=== PATIENT | female | born 1955 | race Caucasian/White ===

== ENCOUNTER 2017-07-21 00:36 | Emergency (ER) | payer SELFPAY ==
[~2017-07-21] VITALS: Ht 152.4 cm; Wt 65.0 kg
[~2017-07-21 00:36] MED LIST: CYAN1000P IM
[2017-07-21 00:39] VITALS: BP 157/92; PULSE 70; RESP 18; TEMP 97.9; O2SAT 99
[2017-07-21] MEDS ORDERED: ZANT150T2 PO (00:46)
[2017-07-21] MEDS ORDERED: HYDR12.57 PO (00:46)
--- NOTE | 2017-07-21 01:56 | PD ---
HPI Chief Complaint: Anxiety Time Seen by Provider: 01:04 Travel History International Travel<30 days: No Contact w/Intl Traveler<30days: No Traveled to known affect area: No History of Present Illness HPI The patient was seen and examined in the presence of the nurse. This patient complains of some head pressure and ringing in her ears. This is a chronic problem she has frequently but it made her anxious tonight and she called the ambulance that brought her in. She doesn't have headache or head injury or fever. No thunderclap onset. Symptoms severity is mild. PFSH Past Medical History Anemia: Yes (PERNICIOUS ANEMIA) Anxiety: Yes Heart Rhythm Problems: Yes (MITRAL VALVE PROLAPSE) Cardiac Catheterization: No Cardiovascular Problems: Yes (htn) High Cholesterol: No Congestive Heart Failure: No Diabetes: No Diminished Hearing: No Gastrointestinal Disorders: Yes (CHRONIC ABDOMINAL PAIN) GERD: Yes Headaches: Yes Hypertension: Yes Immunizations Current: No Migraines: Yes Ulcer: Yes Tetanus Vaccination: > 5 Years Influenza Vaccination: No Menopausal: Yes : 4 Para: 2 Miscarriage: 1 : 1 Ovarian Cysts: Yes Past Surgical History Abdominal Surgery: Yes (hemorrhoidectomy) Section: Yes (X 1) Coronary Artery Bypass Graft: No Gynecologic Surgery: Yes (csection) Other Surgery: Yes (PYNOIDal cyst; GI POLYPS REMOVED) Social History Alcohol Use: Yes (WINE OCASSIONALLY) Tobacco Use: No (QUIT AT AGE 25-smoked cigs) Substance Use: No Allergies-Medications (Allergen,Severity, Reaction): Coded Allergies: alprazolam (Unverified Allergy, Severe, UNKNOWN, 07/21/17) bupivacaine (Unverified Allergy, Severe, UNKNOWN, 07/21/17) cefaclor (Unverified Allergy, Severe, UNKNOWN, 07/21/17) ciprofloxacin (Unverified Allergy, Severe, Anaphylaxis, 07/21/17) citalopram (Unverified Allergy, Severe, Vertigo, 07/21/17) diatrizoate meglumine (Unverified Allergy, Severe, Anaphylaxis, 07/21/17) FEVER BLISTERS ON FACE diazepam (Unverified Allergy, Severe, Anaphylaxis, 07/21/17) gadobenic acid (Unverified Allergy, Severe, Anaphylaxis, 07/21/17) FEVER BLISTERS ON FACE gadodiamide (Unverified Allergy, Severe, Anaphylaxis, 07/21/17) FEVER BLISTERS ON FACE gadoteridol (Unverified Allergy, Severe, Anaphylaxis, 07/21/17) FEVER BLISTERS ON FACE imipramine (Unverified Allergy, Severe, UNKNOWN, 07/21/17) iodine (Unverified Allergy, Severe, Anaphylaxis, 07/21/17) iodixanol (Unverified Allergy, Severe, Anaphylaxis, 07/21/17) FEVER BLISTERS ON FACE iohexol (Unverified Allergy, Severe, Anaphylaxis, 07/21/17) FEVER BLISTERS ON FACE lansoprazole (Unverified Allergy, Severe, PROTON PUMP INHIBITORS, 07/21/17) lidocaine (Unverified Allergy, Severe, UNKNOWN, 07/21/17) morphine (Unverified Allergy, Severe, hypersensitivity, 07/21/17) nitroglycerin (Unverified Allergy, Severe, 07/21/17) UNRESPONSIVENESS penicillin G (Unverified Allergy, Severe, Anaphylaxis, 07/21/17) potassium iodide (Unverified Allergy, Severe, Anaphylaxis, 07/21/17) povidone-iodine (Unverified Allergy, Severe, Anaphylaxis, 07/21/17) prednisone (Unverified Allergy, Severe, THROAT SWELLING, PALPITATIONS, ) sodium iodide (Unverified Allergy, Severe, Anaphylaxis, 07/21/17) sodium iodide (Unverified Allergy, Severe, Anaphylaxis, 07/21/17) transparent dressing (Unverified Allergy, Severe, UNKNOWN, 07/21/17) Uncoded Allergies: ALL "ABDIAS" (Allergy, Severe, CARDIAC ARREST, 02/17/10) ALL "CILLINS" (Allergy, Severe, Anaphylaxis, 02/17/10) Reported Meds & Prescriptions Reported Meds & Active Scripts Active Reported Hydrochlorothiazide 12.5 Mg Cap 12.5 Mg PO DIRECTED Zantac (Ranitidine HCl) 150 Mg Tab 150 Mg PO DAILY Review of Systems General / Constitutional: No: Fever Cardiovascular: No: Chest Pain or Discomfort Respiratory: No: Cough Physical Exam Narrative GENERAL: Well-nourished, well-developed patient in no apparent distress. SKIN: Focused skin assessment reveals no rash and nodules. Skin is Warm and dry. HEAD: Atraumatic. Normocephalic. EYES: Pupils equal and round. No scleral icterus. No injection or drainage. ENT: No nasal bleeding or discharge. Mucous membranes pink and moist. TMs normal NECK: Trachea midline. No JVD. No meningeal signs CARDIOVASCULAR: Regular rate and rhythm. No murmur appreciated. RESPIRATORY: No accessory muscle use. Clear to auscultation. Breath sounds equal bilaterally. GASTROINTESTINAL: Abdomen soft, non-tender, nondistended. Hepatic and splenic margins not palpable. MUSCULOSKELETAL: No obvious deformities. No clubbing. No cyanosis. No edema. NEUROLOGICAL: Awake and alert. No obvious cranial nerve deficits. Motor grossly within normal limits. Normal speech. PSYCHIATRIC: Appropriate mood and affect; insight and judgment normal. Data Data Last Documented VS Vital Signs Date Time Temp Pulse Resp B/P (MAP) Pulse Ox O2 Delivery O2 Flow Rate FiO2 07/21/17 00:39 97.9 70 18 157/92 (113) 99 MDM Medical Decision Making Medical Screen Exam Complete: Yes Emergency Medical Condition: Yes Medical Record Reviewed: Yes Differential Diagnosis Tinnitus, labyrinthitis, migraine, URI Narrative Course I have reviewed the patient's electronic medical record. Patient is no objective neurologic deficit. Seems to be chronic problems. She has poor hearing for years. Recommend ENT and primary care follow-up I offered her some medication but she declines stating she is allergic to everything Diagnosis Primary Impression: Tinnitus Qualified Codes: H93.13 - Tinnitus, bilateral Additional Instructions: The patient was advised to follow up with their physician and return if they worsen. Med/Other Pt SpecificInfo: Other Disposition: DISCHARGE HOME Condition: Stable Obed Campos MD Jul 21, 2017 01:56
== END 2017-07-21 02:16 | disposition home or self-care (01) ==
LOC: NEPC 00:36
DX: H93.13 Tinnitus, bilateral (principal); I10 Essential (primary) hypertension; F41.9 Anxiety disorder, unspecified; I34.1 Nonrheumatic mitral (valve) prolapse; D51.0 Vitamin B12 deficiency anemia due to intrinsic factor deficiency; K21.9 Gastro-esophageal reflux disease without esophagitis
CPT/HCPCS: 99281

== ENCOUNTER 2018-03-04 23:22 | Emergency (ER) | payer SELFPAY ==
[~2018-03-04 23:22] MED LIST changes: -CYAN1000P IM; +HYDR12.57 PO; +ZANT150T2 PO
[2018-03-04 23:41] VITALS: BP 195/103; PULSE 89; RESP 20; TEMP 98; O2SAT 100
[2018-03-04] MEDS ORDERED: SODIUM CHLORIDE 0.9% FLUSH 10 ML FLUSH IV FLUSH PRN (23:45)
[2018-03-04] MEDS ORDERED: ACETAMINOPHEN 500 MG CPLT PO ONE (23:45)
[2018-03-04 23:54] VITALS: RESP 20
[2018-03-05 00:15] LABS: AUTOMATED NEUTROPHIL # 5.6 TH/MM3 (1.8-7.7); BASOPHIL # 0.1 TH/MM3 (0-0.2); BASOPHIL % 0.8 % (0.0-2.0); EOSINOPHIL # 0.1 TH/MM3 (0-0.4); EOSINOPHIL % 0.9 % (0.0-4.0); HEMATOCRIT 38.8 % (35.0-46.0); HEMOGLOBIN 13.1 GM/DL (11.6-15.3); LYMPH % 32.1 % (9.0-44.0); MEAN CELL VOLUME 80.7 FL (80.0-100.0); MEAN CORPUSCULAR HEMOGLOBIN 27.3 PG (27.0-34.0); MEAN CORPUSCULAR HGB CONC 33.8 % (32.0-36.0); MONO % 7.3 % (0.0-8.0); MONOCYTE # 0.7 TH/MM3 (0-0.9); NEUT % 58.9 % (16.0-70.0); PLATELET COUNT 347 TH/MM3 (150-450); RED BLOOD COUNT 4.81 MIL/MM3 (4.00-5.30); RED CELL DISTRIBUTION WIDTH 15.4 % (11.6-17.2); WHITE BLOOD COUNT 9.4 TH/MM3 (4.0-11.0)
[2018-03-05 00:32] LABS: ALT (GPT) 29 U/L (10-53)
[2018-03-05 00:33] LABS: ALKALINE PHOSPHATASE 158 U/L (45-117); TOTAL BILIRUBIN ADULT 0.4 MG/DL (0.2-1.0)
--- NOTE | 2018-03-05 00:36 | RADRPT ---
EXAM DATE/TIME: 03/05/2018 00:17 [facility] COMPARISON: CT BRAIN W/O CONTRAST, May 20, 2016, 13:53. INDICATIONS : Trauma; patient fell from a ladder. RADIATION DOSE: 35.52 CTDIvol (mGy) MEDICAL HISTORY : Hypertension. Cardiovascular disease SURGICAL HISTORY : section. ENCOUNTER: Initial ACUITY: 1 day PAIN SCALE: 7/10 LOCATION: cranial TECHNIQUE: Multiple contiguous axial images were obtained of the head. Using automated exposure control and adj ustment of the mA and/or kV according to patient size, radiation dose was kept as low as reasonably a chievable to obtain optimal diagnostic quality images. DICOM format image data is available electro nically for review and comparison. FINDINGS: CEREBRUM: The ventricles are normal for age. No evidence of midline shift, mass lesion, hemorrhage or acute in farction. No extra-axial fluid collections are seen. POSTERIOR FOSSA: The cerebellum and brainstem are intact. The 4th ventricle is midline. The cerebellopontine angle i s unremarkable. EXTRACRANIAL: The visualized portion of the orbits is intact. SKULL: The calvaria is intact. No evidence of skull fracture. CONCLUSION: 1. No evidence of acute intracranial pathology. No masses are identified. Victor M Tomlinson MD on March 05, 2018 at 0:34 Board Certified Radiologist. This report was verified electronically.
--- NOTE | 2018-03-05 00:47 | PD ---
HPI Chief Complaint: Fall Time Seen by Provider: 23:33 Travel History International Travel<30 days: No Contact w/Intl Traveler<30days: No Traveled to known affect area: No History of Present Illness HPI The patient is 62 years old. Tonight she was painting the ceiling in her house while standing on a ladder evidently 6 feet above the ground when she fell onto her left side causing sudden onset pain in the left wrist left shoulder left chest and left gluteus distribution. Patient reports the pain is severe. She reports head trauma and loss of consciousness. Palpation range of motion of left side worsens pain. Injury occurred about an hour prior. PFSH Past Medical History Anemia: Yes (PERNICIOUS ANEMIA) Anxiety: Yes Heart Rhythm Problems: Yes (MITRAL VALVE PROLAPSE) Cardiac Catheterization: No Cardiovascular Problems: Yes (htn) High Cholesterol: No Congestive Heart Failure: No Diabetes: No Diminished Hearing: No Gastrointestinal Disorders: Yes (CHRONIC ABDOMINAL PAIN) GERD: Yes Headaches: Yes Hypertension: Yes Immunizations Current: No Migraines: Yes Ulcer: Yes Tetanus Vaccination: > 5 Years Influenza Vaccination: No ?: Not Menopausal: Yes : 4 Para: 2 Miscarriage: 1 : 1 Ovarian Cysts: Yes Past Surgical History Abdominal Surgery: Yes (hemorrhoidectomy) Section: Yes (X 1) Coronary Artery Bypass Graft: No Gynecologic Surgery: Yes (csection) Other Surgery: Yes (PYNOIDal cyst; GI POLYPS REMOVED) Social History Alcohol Use: Yes (WINE OCASSIONALLY) Tobacco Use: No (QUIT AT AGE 25-smoked cigs) Substance Use: No Allergies-Medications (Allergen,Severity, Reaction): Coded Allergies: alprazolam (Unverified Allergy, Severe, UNKNOWN, 03/04/18) bupivacaine (Unverified Allergy, Severe, UNKNOWN, 03/04/18) cefaclor (Unverified Allergy, Severe, UNKNOWN, 03/04/18) ciprofloxacin (Unverified Allergy, Severe, Anaphylaxis, 03/04/18) citalopram (Unverified Allergy, Severe, Vertigo, 03/04/18) diatrizoate meglumine (Unverified Allergy, Severe, Anaphylaxis, 03/04/18) FEVER BLISTERS ON FACE diazepam (Unverified Allergy, Severe, Anaphylaxis, 03/04/18) gadobenic acid (Unverified Allergy, Severe, Anaphylaxis, 03/04/18) FEVER BLISTERS ON FACE gadodiamide (Unverified Allergy, Severe, Anaphylaxis, 03/04/18) FEVER BLISTERS ON FACE gadoteridol (Unverified Allergy, Severe, Anaphylaxis, 03/04/18) FEVER BLISTERS ON FACE imipramine (Unverified Allergy, Severe, UNKNOWN, 03/04/18) iodine (Unverified Allergy, Severe, Anaphylaxis, 03/04/18) iodixanol (Unverified Allergy, Severe, Anaphylaxis, 03/04/18) FEVER BLISTERS ON FACE iohexol (Unverified Allergy, Severe, Anaphylaxis, 03/04/18) FEVER BLISTERS ON FACE lansoprazole (Unverified Allergy, Severe, PROTON PUMP INHIBITORS, 03/04/18) lidocaine (Unverified Allergy, Severe, UNKNOWN, 03/04/18) morphine (Unverified Allergy, Severe, hypersensitivity, 03/04/18) nitroglycerin (Unverified Allergy, Severe, 03/04/18) UNRESPONSIVENESS penicillin G (Unverified Allergy, Severe, Anaphylaxis, 03/04/18) potassium iodide (Unverified Allergy, Severe, Anaphylaxis, 03/04/18) povidone-iodine (Unverified Allergy, Severe, Anaphylaxis, 03/04/18) prednisone (Unverified Allergy, Severe, THROAT SWELLING, PALPITATIONS, ) sodium iodide (Unverified Allergy, Severe, Anaphylaxis, 03/04/18) sodium iodide (Unverified Allergy, Severe, Anaphylaxis, 03/04/18) transparent dressing (Unverified Allergy, Severe, UNKNOWN, 03/04/18) Uncoded Allergies: ALL "ABDIAS" (Allergy, Severe, CARDIAC ARREST, 02/17/10) ALL "CILLINS" (Allergy, Severe, Anaphylaxis, 02/17/10) Reported Meds & Prescriptions Reported Meds & Active Scripts Active Reported Hydrochlorothiazide 12.5 Mg Cap 12.5 Mg PO DIRECTED Zantac (Ranitidine HCl) 150 Mg Tab 150 Mg PO DAILY Review of Systems Except as stated in HPI: all other systems reviewed are Neg General / Constitutional: No: Fever Physical Exam Narrative GENERAL: 62-year-old female pleasant well-nourished well-developed mild to moderate distress secondary to pain and/or anxiety Vital Signs Date Time Temp Pulse Resp B/P (MAP) Pulse Ox O2 Delivery O2 Flow Rate FiO2 03/04/18 23:54 20 03/04/18 23:41 98.0 89 20 195/103 (133) 100 Room Air SKIN: Warm and dry. HEAD: Atraumatic. Normocephalic. EYES: Pupils equal and round. No scleral icterus. No injection or drainage. ENT: No nasal bleeding or discharge. Mucous membranes pink and moist. NECK: Trachea midline. No JVD. CARDIOVASCULAR: Regular rate and rhythm. RESPIRATORY: No accessory muscle use. Clear to auscultation. Breath sounds equal bilaterally. GASTROINTESTINAL: Abdomen soft, non-tender, nondistended. Hepatic and splenic margins not palpable. MUSCULOSKELETAL: Tenderness palpation overlying the left gluteus distribution left wrist and left shoulder. No gross deformity. No overlying contusion deformity bruise abrasion laceration. NEUROLOGICAL: Awake and alert. No obvious cranial nerve deficits. Motor grossly within normal limits. Five out of 5 muscle strength in the arms and legs. Normal speech. PSYCHIATRIC: Appropriate mood and affect; insight and judgment normal. Data Data Last Documented VS Vital Signs Date Time Temp Pulse Resp B/P (MAP) Pulse Ox O2 Delivery O2 Flow Rate FiO2 03/04/18 23:54 20 03/04/18 23:41 98.0 89 100 Room Air Orders Orders Acetaminophen (Tylenol) (03/04/18 23:45) Ct Brain W/O Iv Contrast(Rout) (03/04/18 23:45) Ct Cerv Spine W/O Contrast (03/04/18 23:45) Chest, Single Ap (03/04/18 23:45) Pelvis, Ap Only (Routine) (03/04/18 23:45) Ice/Cold Pack (03/04/18 23:45) Femur (Ap & Lat/2vws) (03/04/18 ) Humerus (Min 2vws) (03/04/18 ) Complete Blood Count With Diff (03/04/18 23:45) Comprehensive Metabolic Panel (03/04/18 23:45) Iv Access Insert/Monitor (03/04/18 23:45) Ecg Monitoring (03/04/18 23:45) Oximetry (03/04/18 23:45) Sodium Chloride 0.9% Flush (Ns Flush) (03/04/18 23:45) Wrist, Complete ([id number]) (03/05/18 ) Ed Discharge Order (03/05/18 01:17) Labs Laboratory Tests Test 03/04/18 23:50 White Blood Count 9.4 TH/MM3 Red Blood Count 4.81 MIL/MM3 Hemoglobin 13.1 GM/DL Hematocrit 38.8 % Mean Corpuscular Volume 80.7 FL Mean Corpuscular Hemoglobin 27.3 PG Mean Corpuscular Hemoglobin Concent 33.8 % Red Cell Distribution Width 15.4 % Platelet Count 347 TH/MM3 Mean Platelet Volume 8.0 FL Neutrophils (%) (Auto) 58.9 % Lymphocytes (%) (Auto) 32.1 % Monocytes (%) (Auto) 7.3 % Eosinophils (%) (Auto) 0.9 % Basophils (%) (Auto) 0.8 % Neutrophils # (Auto) 5.6 TH/MM3 Lymphocytes # (Auto) 3.0 TH/MM3 Monocytes # (Auto) 0.7 TH/MM3 Eosinophils # (Auto) 0.1 TH/MM3 Basophils # (Auto) 0.1 TH/MM3 CBC Comment DIFF FINAL Differential Comment Blood Urea Nitrogen 10 MG/DL Creatinine 1.04 MG/DL Random Glucose 98 MG/DL Total Protein 8.0 GM/DL Albumin 4.1 GM/DL Calcium Level 9.7 MG/DL Alkaline Phosphatase 158 U/L Aspartate Amino Transf (AST/SGOT) 40 U/L Alanine Aminotransferase (ALT/SGPT) 29 U/L Total Bilirubin 0.4 MG/DL Sodium Level 138 MEQ/L Potassium Level 3.3 MEQ/L Chloride Level 107 MEQ/L Carbon Dioxide Level 21.9 MEQ/L Anion Gap 9 MEQ/L Estimat Glomerular Filtration Rate 54 ML/MIN [facility] Medical Decision Making Medical Screen Exam Complete: Yes Emergency Medical Condition: Yes Medical Record Reviewed: Yes Differential Diagnosis Pneumothorax, rib contusion, wrist sprain, hematoma Narrative Course Left wrist x-ray shows no fracture CT of the cervical spine reveals a central protrusion at C2-3 without stenosis Chest x-ray shows no acute cardiopulmonary disease or acute traumatic injury Head CT shows no acute intracranial pathology Pelvis x-ray shows no evidence of fracture Left humerus x-ray reveals no evidence of fracture CBC & BMP Diagram 03/04/18 23:50 Total Protein 8.0, Albumin 4.1, Calcium Level 9.7, Alkaline Phosphatase 158 H, Aspartate Amino Transf (AST/SGOT) 40 H, Alanine Aminotransferase (ALT/SGPT) 29, Total Bilirubin 0.4 Pain controlled Pt ready for discharge home Diagnosis Primary Impression: Fall from ladder Qualified Codes: W11.XXXA - Fall on and from ladder, initial encounter Additional Impressions: Left wrist sprain Qualified Codes: S63.502A - Unspecified sprain of left wrist, initial encounter Gluteal pain Loss of consciousness Contusion of left shoulder, initial encounter Hypokalemia Referrals: Primary Care Physician 2 days Med/Other Pt SpecificInfo: No Change to Meds Disposition: 01 DISCHARGE HOME Condition: Stable Irineo Collins MD Mar 05, 2018 00:47
[2018-03-05 00:52] LABS: ALBUMIN 4.1 GM/DL (3.4-5.0); AST (GOT) 40 U/L (15-37); BICARBONATE 21.9 MEQ/L (21.0-32.0); BLOOD UREA NITROGEN 10 MG/DL (7-18); CALCIUM 9.7 MG/DL (8.5-10.1); CHLORIDE 107 MEQ/L (98-107); CREATININE 1.04 MG/DL (0.50-1.00); GLOMERULAR FILTRATION RATE 54 ML/MIN (>89); GLUCOSE,RANDOM 98 MG/DL (74-106); SODIUM (NA) 138 MEQ/L (136-145)
--- NOTE | 2018-03-05 00:53 | RADRPT ---
EXAM DATE/TIME: 03/05/2018 00:02 [facility] COMPARISON: No previous studies available for comparison. INDICATIONS : Chest pain post fall from ladder. MEDICAL HISTORY : Hypertension. Pernicious anemia. Migraines SURGICAL HISTORY : None. ENCOUNTER: Initial ACUITY: 1 day PAIN SCORE: 9/10 LOCATION: Bilateral chest FINDINGS: A single view of the chest demonstrates the lungs to be symmetrically aerated without evidence of mas s, infiltrate or effusion. The cardiomediastinal contours are unremarkable. Osseous structures are intact. CONCLUSION: 1. No acute cardiopulmonary disease. Victor M Tomlinson MD on March 05, 2018 at 0:35 Board Certified Radiologist. This report was verified electronically.
--- NOTE | 2018-03-05 00:54 | RADRPT ---
EXAM DATE/TIME: 03/04/2018 23:58 [facility] COMPARISON: No previous studies available for comparison. INDICATIONS : Left hip pain post fall from ladder. MEDICAL HISTORY : Hypertension. Pernicious anemia. Migraines SURGICAL HISTORY : None. ENCOUNTER: Initial ACUITY: 1 day PAIN SCORE: 9/10 LOCATION: Bilateral pelvis FINDINGS: A single frontal view of the pelvis demonstrates no evidence of fracture. The bony pelvic ring is in tact. Bony mineralization is normal. The soft tissues are intact. CONCLUSION: 1. There is no evidence of acute fracture. Victor M Tomlinson MD on March 05, 2018 at 0:52 Board Certified Radiologist. This report was verified electronically.
--- NOTE | 2018-03-05 00:55 | RADRPT ---
EXAM DATE/TIME: 03/05/2018 00:03 [facility] COMPARISON: No previous studies available for comparison. INDICATIONS : Left proximal humerus pain post fall from ladder. MEDICAL HISTORY : Hypertension. Pernicious anemia. Migraines SURGICAL HISTORY : None. ENCOUNTER: Initial ACUITY: 1 day PAIN SCORE: 9/10 LOCATION: Left upper extremity FINDINGS: Two view examination of the left humerus demonstrates no evidence of fracture or dislocation. Bony m ineralization is normal. The soft tissue structures are intact. CONCLUSION: 1. There is no evidence of acute fracture. Victor M Tomlinson MD on March 05, 2018 at 0:53 Board Certified Radiologist. This report was verified electronically.
--- NOTE | 2018-03-05 01:03 | RADRPT ---
EXAM DATE/TIME: 03/05/2018 00:10 [facility] COMPARISON: No previous studies available for comparison. INDICATIONS : Left wrist pain post fall from ladder. MEDICAL HISTORY : Hypertension. Pernicious anemia. Migraines SURGICAL HISTORY : None. ENCOUNTER: Initial ACUITY: 1 day PAIN SCORE: 8/10 LOCATION: Left upper extremity FINDINGS: Three view examination of the left wrist demonstrates no soft tissue swelling, dislocation, or fractu re. The carpal bones are in normal alignment. The joint spaces are maintained. Bony mineralization is normal. CONCLUSION: 1. Negative examination of the wrist. Victor M Tomlinson MD on March 05, 2018 at 1:02 Board Certified Radiologist. This report was verified electronically.
--- NOTE | 2018-03-05 01:08 | RADRPT ---
EXAM DATE/TIME: 03/05/2018 00:17 [facility] COMPARISON: No previous studies available for comparison. INDICATIONS : Trauma; patient fell from a ladder. RADIATION DOSE: 21.11 CTDIvol (mGy) MEDICAL HISTORY : Hypertension. Cardiovascular disease SURGICAL HISTORY : Carpal tunnel syndrome. ENCOUNTER: Initial ACUITY: 1 day PAIN SCALE: 7/10 LOCATION: neck TECHNIQUE: Volumetric scanning of the cervical spine was performed. Multiplanar reconstructions in the sagittal, coronal and oblique axial planes were performed. Using automated exposure control and adjustment o f the mA and/or kV according to patient size, radiation dose was kept as low as reasonably achievable to obtain optimal diagnostic quality images. DICOM format image data is available electronically f or review and comparison. FINDINGS: Sagittal images demonstrate normal vertebral body alignment and curvature. The odontoid is intact. Th e occipital condyles and lateral masses of C1 are intact. Axial images were performed from C2-C3 to C7-T1. There is calcification of the transverse ligament. C2-C3: A central disc protrusion is present impinging on the thecal sac. There is no significant spinal yenny l stenosis. C3-C4: There is mild annular bulge of the disc. There is moderate facet arthritis on the left. The neural fo ramina are clear bilaterally. C4-C5: There is mild diffuse annular bulge of the disc. The neural foramina are clear bilaterally. There is no significant spinal canal stenosis. C5-C6: There is mild diffuse annular bulge of the disc. The neural foramina are clear bilaterally. There is no significant spinal canal stenosis. C6-C7: There is mild annular bulge of the disc. The neural foramina are clear bilaterally. C7-T1: No significant abnormalities identified. CONCLUSION: 1. Central protrusion at C2-C3 without stenosis. Victor M Tomlinson MD on March 05, 2018 at 1:02 Board Certified Radiologist. This report was verified electronically.
--- NOTE | 2018-03-05 01:56 | RADRPT ---
EXAM DATE/TIME: 03/04/2018 23:59 [facility] COMPARISON: No previous studies available for comparison. INDICATIONS : Left proximal femur pain post fall from ladder. MEDICAL HISTORY : Hypertension. Pernicious anemia. Migraines SURGICAL HISTORY : None. ENCOUNTER: Initial ACUITY: 1 day PAIN SCORE: 9/10 LOCATION: Left femur FINDINGS: Two view examination of the left femur demonstrates no evidence of fracture or dislocation. Bony min eralization is normal. The soft tissue structures are intact. CONCLUSION: 1. There is no evidence of acute fracture. Victor M Tomlinson MD on March 05, 2018 at 1:54 Board Certified Radiologist. This report was verified electronically.
== END 2018-03-05 02:19 | disposition home or self-care (01) ==
LOC: NEPC 23:22
DX: S63.502A Unspecified sprain of left wrist, initial encounter (principal); S40.012A Contusion of left shoulder, initial encounter; E87.6 Hypokalemia; S06.9X9A Unspecified intracranial injury with loss of consciousness of unspecified duration, initial encounter; W11.XXXA Fall on and from ladder, initial encounter; Y93.H3 Activity, building and construction; Y92.009 Unspecified place in unspecified non-institutional (private) residence as the place of occurrence of the external cause
CPT/HCPCS: 70450; 71045; 72125; 72170; 73060; 73110; 73552; 80053; 85025; 99284